=== PATIENT | female | born 1980 | race Caucasian/White ===

== ENCOUNTER 2016-08-05 19:22 | Emergency (ER) | payer OTHER ==
[~2016-08-05] VITALS: Ht 160 cm; Wt 52.2 kg
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
[2016-08-05 21:12] LABS: ABSOLUTE BASOPHIL COUNT 0.1 /CUMM (0.0-0.2); ABSOLUTE EOSINOPHIL COUNT 0.1 /CUMM (0.0-0.7); ABSOLUTE GRANULOCYTE CT 4.7 /CUMM (1.4-6.5); ABSOLUTE MONOCYTE COUNT 0.6 /CUMM (0.10-0.60); BASOPHIL % 0.7 % (0.0-2.0); EOSINOPHIL % 1.2 % (0-5); GRANULOCYTE % 55.5 % (42.2-75.2); HEMATOCRIT 45.4 % (37-47); MEAN CORPUSCULAR HGB 29.3 PG (27.0-31.0); MEAN CORPUSCULAR HGB CONC 33.1 G/DL (33.0-37.0); MEAN CORPUSCULAR VOLUME 88.6 FL (81.0-99.0); MEAN PLATELET VOLUME 8.5 FL (7.4-10.4); PLATELET COUNT 266 /CUMM (130-400); RBC DISTRIBUTION WIDTH 12.9 % (11.5-14.5); RED BLOOD CELL CT 5.12 /CUMM (4.20-5.40); WHITE BLOOD CELL COUNT 8.5 /CUMM (4.8-10.8)
--- NOTE | 2016-08-05 21:41 | CT SCAN REPORT ---
EXAMINATION: CT HEAD WITHOUT CONTRAST CLINICAL INFORMATION: Right-sided headaches worsening over 10 months. COMPARISON: None TECHNIQUE: Contiguous axial imaging was performed from the skull base to vertex without intravenous administration of contrast. DLP: 543 mGy-cm FINDINGS: There is no evidence of acute intracranial hemorrhage or territorial infarction. No evidence of focal mass, abnormal mass effect or midline shift. Beth to white matter differentiation is well preserved. No extra-axial fluid collections are identified. The ventricles are normal in size. The brain parenchyma has normal attenuation. The osseous structures and soft tissues are normal. The mastoid air cells and visualized portions of the paranasal sinuses are well aerated. IMPRESSION: No acute intracranial pathology.
[2016-08-05 21:44] VITALS: BP 98/54
[2016-08-05] MEDS ORDERED: FIORICET 50-301 EACH PO (22:05)
[2016-08-05] MEDS ORDERED: MECLIZINE HCL12.5 M1 PO (22:05)
== END 2016-08-05 22:11 ==
LOC: ERH 19:22
PROVIDERS: Physician Assistant
DX: R42 Dizziness and giddiness (principal)
CPT/HCPCS: 81003; 81025; 96361; 96374; 96375; J1200; J1885; J2405